=== PATIENT | male | born 1950 ===

== ENCOUNTER → 2025-01-12 10:34 | Outpatient (REF) | payer BC, SELFPAY | LOC: RAD 10:34 | PROVIDERS: ATTENDING PHYSICIAN Thoracic Surgery (Cardiothoracic Vascular Surgery); FAMILY PHYSICIAN Internal Medicine; REFERRING PHYSICIAN Hospitalist | DX: I77.810 Thoracic aortic ectasia (principal); Z01.810 Encounter for preprocedural cardiovascular examination | CPT/HCPCS: 71275; Q9967 ==